=== PATIENT | female | born 1950 | race Caucasian/White ===

== ENCOUNTER → 2018-01-09 | Outpatient (CLI) | payer OTHER, MEDICARE ==
--- NOTE | 2018-01-17 22:55 | ONC ---
[place] [address] RADIATION ONCOLOGY NOTE Name: JAYLA WALLIS Room: [facility]#: [id number] Admission: 01/09/18 Attend Phys: Good Loza MD Discharge: Date of : 50 Report #: [id number] THIS REPORT FOR: //name// CC: Good Bhat NP DATE OF SERVICE: 01/09/2018 [facility] REFERRING PHYSICIANS: Include Dr. Jayla Minaya, Dr. Dawn and also nurse practitioner, Angie Bhat. PRIMARY SITE AND HISTOPATHOLOGY: The patient received radiation therapy as part of breast conservation therapy to the right breast for a stage IA right breast cancer. INTERVAL NOTE: The patient denied having any nipple discharge from the left breast. She denied having nipple discharge from the right breast. She denied having any palpable masses in the right breast. She denied having any palpable masses in the left breast. She is not having any upper extremity edema. MEDICATIONS: Include 125 mcg of levothyroxine per day, lisinopril/hydrochlorothiazide. She did not tolerate her anti-estrogen medication, so that were discontinued. REVIEW OF SYSTEMS: RESPIRATORY: Breathing was stable. She was not short of breath. MUSCULOSKELETAL: Her range of motion was normal in her upper extremities. PHYSICAL EXAMINATION: With my nurse, Cathy Mccoy, present: VITAL SIGNS: The patient weighed 209.4 pounds on 01/09/2018, 208.6 pounds on 08/21/2016. On 01/09/2018 blood pressure was 153/86, pulse 75, oxygen saturation was 97%, respiration 18. LYMPH NODES: She had no cervical or supraclavicular or axillary lymphadenopathy. HEART: Had a regular rate and rhythm without murmur. LUNGS: were clear to auscultation. BREASTS: Left breast had no suspicious palpable masses. Right breast had no suspicious palpable masses. ABDOMEN: Not tender. Spleen was not palpable. Liver was at the costal margin. EXTREMITIES: Had no clubbing, [place] [address] RADIATION ONCOLOGY NOTE Name: JAYLA WALLIS Room: [facility]#: [id number] Admission: 01/09/18 Attend Phys: Good Loza MD Discharge: Date of : 50 Report #: [id number] RADIOLOGIC DATA: She had a bilateral mammogram on 06/06/2017 at [facility] and that revealed probably benign findings. She said she also had a mammogram of the right breast in 11/2017 and that it was unremarkable. ASSESSMENT AND PLAN: 1. History of right breast cancer after breast conservation therapy- there is no evidence of breast cancer at this time. A requisition was made for a bilateral mammogram in 05/2018 or 06/2018. She was asked to schedule a follow up appointment to see me afterwards. 2. Hypothyroidism- The patient takes 125 mcg of levothyroxine and that is managed by her referring physicians. 3. Hypertension- The patient takes lisinopril/hydrochlorothiazide and that is managed by her referring physicians. Thank you for allowing me to participate in the care of this patient. <ELECTRONICALLY SIGNED> By: Good Loza MD 01/17/18 [id number] Loza MD /nt
== END | disposition home or self-care (01) ==
LOC: M.RTH 02:52
DX: Z08 Encounter for follow-up examination after completed treatment for malignant neoplasm (principal); E03.9 Hypothyroidism, unspecified; I10 Essential (primary) hypertension; Z85.3 Personal history of malignant neoplasm of breast; Z79.899 Other long term (current) drug therapy

== ENCOUNTER → 2018-07-17 | Outpatient (CLI) | payer OTHER, MEDICARE ==
--- NOTE | ~2018-07-17 | ONC ---
[address] [address] RADIATION ONCOLOGY NOTE Name: JAYLA WALLIS Room: [facility]#: [id number] Admission: 07/17/18 Attend Phys: Good Loza MD Discharge: Date of : 50 Report #: [id number] THIS REPORT FOR: //name// CC: Good Dawn NO PCP Angie Bhat, Nurse Practitioner DATE OF SERVICE: 07/17/2018 RADIATION ONCOLOGY FOLLOWUP NOTE [facility] phone is [phone]. REFERRING PHYSICIANS: Include: 1. Dr. Jayla Minaya. 2. Dr. Dawn. 3. Angie Bhat, Nurse Practitioner. PRIMARY SITE AND HISTOPATHOLOGY: The patient received radiation therapy as part of breast conservation therapy to the right breast for stage IA right breast cancer. That radiation therapy was completed on 11/13/2016. INTERVAL NOTE: The patient denied having any nipple discharge from the left breast. She denied having any nipple discharge from the right breast. She denied having any palpable masses in the right breast. She denied having any palpable masses in the left breast. She denied having any upper extremity edema. MEDICATIONS: Include 125 mcg of levothyroxine per day. She also takes lisinopril and hydrochlorothiazide. She used to take an antiestrogen, but she did not tolerate it; so that was discontinued in the past. REVIEW OF SYSTEMS: RESPIRATORY: Breathing was stable. She was not short of breath. MUSCULOSKELETAL: Her range of motion was normal in her upper extremities. PHYSICAL EXAMINATION: With my nurse, Cathy Mccoy, present: VITAL SIGNS: The patient weighed 210.8 pounds on 07/17/2018 and 209.4 pounds on 01/09/2018; and on 07/17/2018, blood pressure was 162/83, pulse 75, respirations 18 and oxygen saturation 96%. LYMPH NODES: The patient had no cervical, supraclavicular or axillary lymphadenopathy. HEART: Had a regular rate and rhythm, without murmur. LUNGS: [place] [address] RADIATION ONCOLOGY NOTE Name: JAYLA WALLIS Room: [facility]#: [id number] Admission: 07/17/18 Attend Phys: Good Loza MD Discharge: Date of : 50 Report #: [id number] BREASTS: The left breast had no suspicious palpable masses. The right breast had no suspicious palpable masses. ABDOMEN: Nontender. Spleen was not palpable. Liver was at the costal margin. EXTREMITIES: Had no clubbing, cyanosis or edema. RADIOLOGIC DATA: She had a bilateral mammogram on 06/19/2018, which revealed probably benign findings, so a 6-month followup mammogram was recommended. ASSESSMENT AND PLAN: 1. History of right breast cancer. After breast conservation therapy, there is no evidence of breast cancer at this time. Requisition will be made for a bilateral mammogram in 11/2019 or 12/2019 and the patient was asked to schedule a followup appointment to see me afterwards. 2. Hypothyroidism. The patient takes 125 mcg levothyroxine, as managed by her referring physicians. 3. Hypertension. The patient takes lisinopril and hydrochlorothiazide and that is managed by her referring physicians. Thank you for allowing me to participate in the care of this patient. By: [id number] Loza MD /leslie
== END ==
LOC: M.RTH 04:18
DX: Z08 Encounter for follow-up examination after completed treatment for malignant neoplasm (principal); E03.9 Hypothyroidism, unspecified; I10 Essential (primary) hypertension; Z85.3 Personal history of malignant neoplasm of breast

== ENCOUNTER → 2019-01-22 | Outpatient (CLI) | payer OTHER, MEDICARE ==
--- NOTE | 2019-01-31 17:46 | ONC ---
[address] [address] RADIATION ONCOLOGY NOTE Name: JAYLA WALLIS Room: [facility]#: [id number] Admission: 01/22/19 Attend Phys: Good Loza MD Discharge: Date of : 50 Report #: [id number] THIS REPORT FOR: //name// CC: Good Dawn DATE OF SERVICE: 01/22/2019 RADIATION ONCOLOGY FOLLOWUP NOTE REFERRING PHYSICIANS: Include Angie Bhat NP, Jayla Minaya MD, Dr. Dawn. [facility] phone is [phone]. PRIMARY SITE AND HISTOPATHOLOGY: The patient received radiation therapy as part of breast conservation therapy to the right breast for a stage Ia right breast cancer. The radiation therapy was completed on 11/13/2016. INTERVAL NOTE: The patient denied having any nipple discharge from the left breast. She denied having any nipple discharge from the right breast. She denied having any palpable masses involving the right breast. She denied having any palpable masses involving the left breast. She denied having any upper extremity edema. MEDICATIONS: Include 125 mcg of levothyroxine per day. She also takes lisinopril and hydrochlorothiazide. She used to take antiestrogen medications in the past, but she did not tolerate them, so they were discontinued. REVIEW OF SYSTEMS: RESPIRATORY: Breathing was stable. She was not short of breath. MUSCULOSKELETAL: Range of motion was normal in her upper extremities. PHYSICAL EXAMINATION: With my nurse, Cathy Mccoy, present: VITAL SIGNS: The patient weighed 219 pounds on 01/22/2019. She was 210.8 pounds on 07/17/2018. On 01/22/2019, blood pressure was 164/92, pulse 83, oxygen saturation was 97% on room air, respirations 18. LYMPH NODES: The patient had no cervical, supraclavicular or axillary lymphadenopathy. HEART: Had a regular rate and rhythm without murmur. LUNGS: were clear to auscultation. BREASTS: Left breast had no suspicious palpable masses. The right breast [place] [address] RADIATION ONCOLOGY NOTE Name: JAYLA WALLIS Room: [facility]#: [id number] Admission: 01/22/19 Attend Phys: Good Loza MD Discharge: Date of : 50 Report #: [id number] ABDOMEN: Not tender, spleen was not palpable. Liver was at the costal margin. EXTREMITIES: Had no clubbing, cyanosis or edema. RADIOLOGIC DATA: Bilateral mammogram from [facility] on 12/10/2018 showed a stable bilateral mammogram and the radiology report recommended a follow up in 1 year. ASSESSMENT AND PLAN: 1. History of right breast cancer- There is no evidence of breast cancer at this time. A requisition was made for a bilateral mammogram in about 1 year and the patient was asked to schedule a follow up appointment to see me afterwards. 2. Hypothyroidism - the patient takes 125 mcg of levothyroxine per day and that is managed by her referring physicians. 3. Hypertension- The patient takes lisinopril and that is managed by her referring physicians as well. Thank you for allowing me to participate in the care of this patient. <ELECTRONICALLY SIGNED> By: Good Loza MD 01/31/19 1746 [id number] Loza MD /nt
== END ==
LOC: M.RTH 12-25 10:15
DX: Z08 Encounter for follow-up examination after completed treatment for malignant neoplasm (principal); Z85.3 Personal history of malignant neoplasm of breast; E03.9 Hypothyroidism, unspecified; I10 Essential (primary) hypertension